=== PATIENT | female | born 1980 | race African-American/Black ===

== ENCOUNTER 2018-05-01 22:17 | Emergency (ER) | payer SELFPAY ==
[~2018-05-01] VITALS: Ht 152.4 cm; Wt 54.0 kg
[2018-05-01 22:35] VITALS: BP 136/86
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
[2018-05-02] MEDS ORDERED: LIDOCAINE 2% 20 ML VIAL. IJ ONE
[2018-05-02] MEDS ORDERED: LIDOCAINE 1% PF 30 ML VIAL. INJ ONE (00:15)
[2018-05-02] MEDS ORDERED: LIDOCAINE 1%/EPI 1:100,000 20 ML VIAL. INJ ONE (00:15)
[2018-05-02] MEDS ORDERED: HYDR-3164 PO (00:25)
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
== END 2018-05-02 01:07 | disposition home or self-care (01) ==
LOC: ER 22:17
DX: S01.112A Laceration without foreign body of left eyelid and periocular area, initial encounter (principal); X99.0XXA Assault by sharp glass, initial encounter; Y93.89 Activity, other specified; Y92.89 Other specified places as the place of occurrence of the external cause; Y99.8 Other external cause status
CPT/HCPCS: 70486; 99284; J3490

== ENCOUNTER 2018-05-16 09:01 | Emergency (ER) | payer SELFPAY ==
[~2018-05-16] VITALS: Ht 152.4 cm; Wt 54.0 kg
[~2018-05-16 09:01] MED LIST: HYDR-3164 PO
[2018-05-16 09:12] VITALS: BP 111/72
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
== END 2018-05-16 09:39 | disposition home or self-care (01) ==
LOC: ER 09:01
DX: S01.112D Laceration without foreign body of left eyelid and periocular area, subsequent encounter (principal); F17.200 Nicotine dependence, unspecified, uncomplicated; X58.XXXD Exposure to other specified factors, subsequent encounter
CPT/HCPCS: 99281

== ENCOUNTER 2018-07-26 00:35 | Emergency (ER) | payer SELFPAY ==
[~2018-07-26] VITALS: Ht 152.4 cm; Wt 54.0 kg
[2018-07-26 01:41] VITALS: BP 126/75
[2018-07-26] MEDS ORDERED: ORPH100T PO (03:01)
[2018-07-26] MEDS ORDERED: PRED20TA PO (03:01)
--- NOTE | 2018-07-26 03:01 | PHYS DOC ---
Past Medical History Past Medical History: No Pertinent History Past Surgical History: No Surgical History Alcohol Use: Occasionally Drug Use: None Adult General Chief Complaint Chief Complaint: LOWER EXT PAIN HPI HPI Patient is a 38 year old [f__sex] who presents with [] Review of Systems Review of Systems Constitutional: Denies fever or chills [] Eyes: Denies change in visual acuity, redness, or eye pain [] HENT: Denies nasal congestion or sore throat [] Respiratory: Denies cough or shortness of breath [] Cardiovascular: No additional information not addressed in HPI [] GI: Denies abdominal pain, nausea, vomiting, bloody stools or diarrhea [] : Denies dysuria or hematuria [] Musculoskeletal: Denies back pain or joint pain [] Integument: Denies rash or skin lesions [] Neurologic: Denies headache, focal weakness or sensory changes [] Endocrine: Denies polyuria or polydipsia [] All other systems were reviewed and found to be within normal limits, except as documented in this note. Allergies Allergies Allergies Coded Allergies Type Severity Reaction Last Updated Verified No Known Drug Allergies 05/01/18 No Physical Exam Physical Exam Constitutional: Well developed, well nourished, no acute distress, non-toxic appearance. [] HENT: Normocephalic, atraumatic, bilateral external ears normal, oropharynx moist, no oral exudates, nose normal. [] Eyes: PERRLA, EOMI, conjunctiva normal, no discharge. [] Neck: Normal range of motion, no tenderness, supple, no stridor. [] Cardiovascular:Heart rate regular rhythm, no murmur [] Lungs & Thorax: Bilateral breath sounds clear to auscultation [] Abdomen: Bowel sounds normal, soft, no tenderness, no masses, no pulsatile masses. [] Skin: Warm, dry, no erythema, no rash. [] Back: No tenderness, no CVA tenderness. [] Extremities: No tenderness, no cyanosis, no clubbing, ROM intact, no edema. [] Neurologic: Alert and oriented X 3, normal motor function, normal sensory function, no focal deficits noted. [] Psychologic: Affect normal, judgement normal, mood normal. [] EKG EKG [] Radiology/Procedures Radiology/Procedures [] Course & Med Decision Making Course & Med Decision Making Pertinent Labs and Imaging studies reviewed. (See chart for details) [] Dragon Disclaimer Dragon Disclaimer This electronic medical record was generated, in whole or in part, using a voice recognition dictation system. Departure Departure Impression: Primary Impression: Sciatic leg pain Disposition: HOME, SELF-CARE Condition: STABLE Referrals: NO PCP (PCP) JOSTIN SULLIVAN MD Patient Instructions: Sciatica, Eflr-nt-Csic Scripts Orphenadrine Citrate (ORPHENADRINE CITRATE) 100 Mg Tablet.er 100 MG PO BID PRN for MUSCLE PAIN, #14 Prov: CRISTOBAL GONZALEZ DO 07/26/18 Prednisone (PREDNISONE) 20 Mg Tablet 2 TAB PO DAILY, #8 TAB Prov: CRISTOBAL GONZALEZ DO 07/26/18 CRISTOBAL GONZALEZ DO Jul 26, 2018 03:01
[2018-07-26] MEDS ORDERED: DEXAMETHASONE 4 MG TABLET PO ONE (03:15)
[2018-07-26] MEDS ORDERED: KETOROLAC 30 MG/ML VIAL. IM ONE (03:15)
== END 2018-07-26 03:30 | disposition home or self-care (01) ==
LOC: ER 00:35
DX: M54.32 Sciatica, left side (principal)
CPT/HCPCS: 96372; 99283; J1885; J8540

== ENCOUNTER 2019-10-26 13:43 | Emergency (ER) | payer BC, MEDICAID ==
[~2019-10-26] VITALS: Ht 152.4 cm; Wt 50.0 kg
[~2019-10-26 13:43] MED LIST changes: +ORPH100T PO; +PRED20TA PO
[2019-10-26 13:45] VITALS: BP 141/96
[2019-10-26] MEDS ORDERED: HYDROcodone/APAP 5/325MG 1 TAB TABLET PO ONE (14:30)
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
== END 2019-10-26 15:30 | disposition home or self-care (01) ==
LOC: ER 13:43
DX: S20.212A Contusion of left front wall of thorax, initial encounter (principal); S00.83XA Contusion of other part of head, initial encounter; R68.84 Jaw pain; H57.11 Ocular pain, right eye; F17.200 Nicotine dependence, unspecified, uncomplicated; F10.20 Alcohol dependence, uncomplicated; Y90.9 Presence of alcohol in blood, level not specified; Y08.89XA Assault by other specified means, initial encounter; Y93.89 Activity, other specified; Y92.89 Other specified places as the place of occurrence of the external cause; Y99.8 Other external cause status
CPT/HCPCS: 70450; 70486; 71101; 81025; 99285-25